=== PATIENT | female | born 1965 | race Caucasian/White ===

== ENCOUNTER 2024-04-05 14:33 | Emergency (ER) | payer OTHER ==
[2024-04-05 14:52] LABS: BASOPHILS ABSOLUTE AUTO 0.05 K/uL (0.00-0.20); BASOPHILS PERCENT AUTO 0.5 % (0.0-2.0); EOSINOPHILS ABSOLUTE AUTO 0.59 K/uL (0.00-0.50); EOSINOPHILS PERCENT AUTO 6.5 % (0.0-5.0); HEMATOCRIT 43.1 % (34.0-46.0); HEMOGLOBIN 14.6 g/dL (11.7-15.5); IMMATURE GRAN ABSOLUTE AUTO 0.02 10^3/uL (0.00-0.04); IMMATURE GRAN PERCENT AUTO 0.2 % (0.0-0.4); LYMPHOCYTES ABSOLUTE AUTO 2.62 K/uL (0.50-3.50); LYMPHOCYTES PERCENT AUTO 28.7 % (10.0-50.0); MEAN CORPUSCULAR HEMOGLOBIN 32.3 pg (28.2-33.3); MEAN CORPUSCULAR HGB CONC 33.9 g/dL (31.7-36.0); MEAN CORPUSCULAR VOLUME 95.4 fL (84.0-98.0); MONOCYTES ABSOLUTE AUTO 0.73 K/uL (0.00-1.00); NEUTROPHILS ABSOLUTE AUTO 5.13 K/uL (1.40-7.00); NEUTROPHILS PERCENT AUTO 56.1 % (45.0-80.0); PLATELET COUNT,PLT 301 K/uL (150-350); RED BLOOD CELL COUNT 4.52 M/uL (3.77-5.09); RED CELL DISTRIBUTION WIDTH 13.1 % (11.2-14.1); WHITE BLOOD CELL COUNT,WBC 9.1 K/uL (4.0-10.2)
[2024-04-05 15:17] LABS: ALANINE AMINOTRANSFERASE,ALT 26 U/L (12-78); ALKALINE PHOSPHATASE 100 IU/L (46-116); ASPARTATE AMNIOTRANSFERASE,AST 14 U/L (15-37); BILIRUBIN TOTAL 0.4 mg/dL (0.2-1.0); BLOOD UREA NITROGEN,BUN 9 mg/dL (7-18); CHLORIDE,CL 104 mmol/L (98-107); CREATININE 1.02 mg/dL (0.51-1.17); GLUCOSE RANDOM 119 mg/dL (70-99); POTASSIUM,K 3.7 mmol/L (3.5-5.1); PROTEIN TOTAL,TP 7.4 g/dL (6.4-8.2); SODIUM,NA 142 mmol/L (136-145)
[2024-04-05 15:23] LABS: ESTIMATED GFR 65 mL/min (>=60)
[2024-04-05 15:40] LABS: INR 0.9 (0.9-1.1); PROTHROMBIN TIME 8.9 SEC (9.0-11.1)
[2024-04-05 16:17] VITALS: BP 119/72; PULSE 74
== END 2024-04-05 16:30 | disposition home or self-care (01) ==
LOC: LL.ED 14:33
DX: L50.9 Urticaria, unspecified (principal); T44.8X5A Adverse effect of centrally-acting and adrenergic-neuron-blocking agents, initial encounter; Z79.899 Other long term (current) drug therapy; Z91.018 Allergy to other foods; Z88.2 Allergy status to sulfonamides; Z91.041 Radiographic dye allergy status; Z88.8 Allergy status to other drugs, medicaments and biological substances
CPT/HCPCS: 36415; 71046; 80053; 83735; 84484; 85025; 85610; 87428-QW; 93005; 99285